=== PATIENT | male | born 1940 | race Caucasian/White ===

== ENCOUNTER 2021-05-24 06:08 | Day surgery (SDC) | payer MEDICARE, OTHER ==
[2021-05-17 14:58] LABS: BASOPHILS % (AUTO) 0.4 % (0-1); EOSINOPHILS # (AUTO) 0.2 X10'3 (0-0.9); EOSINOPHILS % (AUTO) 2.4 % (0-6); LYMPHOCYTES # (AUTO) 1.9 X10'3 (1.1-4.8); LYMPHOCYTES % (AUTO) 18.9 % (21-51); MEAN CORPUSCULAR HEMOGLOBIN 34.2 PG (27.0-31.0); MEAN CORPUSCULAR HGB CONC 34.5 g/dL (33.0-36.5); MEAN PLATELET VOLUME 6.7 FL (7.4-10.4); MONOCYTES # (AUTO) 0.7 X10'3 (0-0.9); MONOCYTES % (AUTO) 7.5 % (2-12); NEUTROPHILS % (AUTO) 70.8 % (42-75); PRE OP HEMATOCRIT 36.7 % (42.0-52.0); PRE OP HEMOGLOBIN 12.7 g/dL (14.0-17.9); PRE OP PLATELET COUNT 287 X10'3 (140-440); RED CELL DISTRIBUTION WIDTH 14.1 % (11.5-14.5)
[2021-05-17 15:19] LABS: ALBUMIN 3.3 G/DL (3.4-5.0); ALKALINE PHOSPHATASE 95 IU/L (46-116); BLOOD UREA NITROGEN 16 MG/DL (7-18); BUN/CREATININE RATIO 16.2 (5.4-32.0); CALCIUM 8.4 MG/DL (8.5-10.1); CHLORIDE 105 MMOL/L (99-107); CREATININE 0.99 MG/DL (0.60-1.10); PRE OP ALT 23 U/L (30-65); PRE OP ANION GAP 6 (8-16); PRE OP AST 20 U/L (10-37); PRE OP BILIRUB, TOTAL 0.3 MG/DL (0.0-1.0); PRE OP GLUCOSE 101 MG/DL (70-104); PRE OP POTASSIUM 4.1 MMOL/L (3.4-5.1); PRE OP SODIUM 140 MMOL/L (135-145); TOTAL CARBON DIOXIDE 29.4 MMOL/L (24-32); TOTAL PROTEIN 6.6 G/DL (6.4-8.2); eGFR 73 ML/MIN
[~2021-05-24] VITALS: Ht 167.6 cm; Wt 59.9 kg
[~2021-05-24 06:08] MED LIST: ALFU10TA10 PO; ASPI-611 PO; ATOR40TA72 PO; CYAN-34 PO; DOCUMENT DATE & TIME OF BETA-BLOCKER PO ONE; LISI-790 PO; METO25TA6 PO; PANT40TA54 PO; VITAMIN D; cefazolin/dext.iso 2gm/100ml IV ONE; famotidine 20mg tablet PO ONE; ringers solution, lacted 1,000 ML IV SCH
[2021-05-24] MEDS ORDERED: BUPIVAcaine/PF 2.5mg/ml (0.25%) 10ml vial ONE (06:42)
[2021-05-24] MEDS ORDERED: labetalol 20mg/4ml (5mg/ml) syringe IV PRN (07:10)
[2021-05-24] MEDS ORDERED: hydrALAZINE 20mg/ml inj. IV PRN (07:10)
[2021-05-24] MEDS ORDERED: proCHLORperazine 10 MG/2 ml inj IV PRN (07:10)
[2021-05-24] MEDS ORDERED: meperidine/PF 25mg/ml syringe IV PRN ×3 (07:10)
[2021-05-24] MEDS ORDERED: ringers solution, lacted 1,000 ML IV SCH (07:10)
[2021-05-24] MEDS ORDERED: ondansetron/PF 4mg/2ml inj IV PRN (07:10)
[2021-05-24] MEDS ORDERED: acetaminophen 1,000mg/100ml IV 100 ML IV PRN (07:10)
[2021-05-24] MEDS ORDERED: morphine 4 MG/ML inj SYRINge IV PRN (07:10)
[2021-05-24] MEDS ORDERED: morphine 2 MG/ML inj. syringe IV PRN (07:10)
[2021-05-24] MEDS ORDERED: fentaNYL/PF 50MCG/1 ML 2ML syringe ONE (08:01)
[2021-05-24] MEDS ORDERED: midazolam 1 mg/ML 2ml injection ONE (08:01)
[2021-05-24] MEDS ORDERED: propofol inj 20 ML IV ONE (08:29)
[2021-05-24] MEDS ORDERED: LIDOcaine 0.5% (5mg/ml) 50ml vial ONE (08:29)
[2021-05-24 08:35] VITALS: BP 100/58
--- NOTE | 2021-05-24 08:35 | NUR ---
ADMITTED TO PACU FROM OR ACCOMPANIED BY ANESTHESIA. INTIAL PHYSICAL ASSESSMENT DONE AND RECORDED. REPORT RECEIVED FROM ANESTHESIA.
[2021-05-24 08:45] VITALS: BP 92/50
[2021-05-24 08:55] VITALS: BP 95/52
[2021-05-24 09:00] VITALS: BP 100/55
--- NOTE | 2021-05-24 09:00 | NUR ---
DISCHARGE CRITERIA MET, DISCHARGE INSTRUCTIONS GIVEN, DEMONSTRATES VERBAL UNDERSTANDING. DISCHARGED HOME IN GOOD CONDITION.
[2021-05-24 09:50] VITALS: BP 166/91
[2021-05-24 09:51] VITALS: BP 166/91
== END 2021-05-24 09:00 | disposition home or self-care (01) ==
LOC: PAS 06:08
PROVIDERS: ATTEND Orthopaedic Surgery Hand Surgery
DX: G56.01 Carpal tunnel syndrome, right upper limb (principal); I10 Essential (primary) hypertension; K21.9 Gastro-esophageal reflux disease without esophagitis; Z88.2 Allergy status to sulfonamides; Z79.899 Other long term (current) drug therapy; Z87.891 Personal history of nicotine dependence; Z72.89 Other problems related to lifestyle; Z85.51 Personal history of malignant neoplasm of bladder; Z79.82 Long term (current) use of aspirin; Z20.822 Contact with and (suspected) exposure to COVID-19
CPT/HCPCS: 36415; 64721; 80053; 82948; 85025; 93005; J2001; J2250; J2704; J3010; J3490; U0003; U0005; Z7506; Z7512; A4215; J7120

== ENCOUNTER 2024-05-02 11:33 | Day surgery (SDC) | payer MEDICARE, OTHER ==
[~2024-05-02] VITALS: Ht 167.6 cm; Wt 58.6 kg
[~2024-05-02 11:33] MED LIST changes: -ALFU10TA10 PO; +ALFU10TA47 PO; -ASPI-611 PO; +CHOL100040 PO; -DOCUMENT DATE & TIME OF BETA-BLOCKER PO ONE; +FINA5TAB12; -LISI-790 PO; +LISI5TAB22 PO; -VITAMIN D; -cefazolin/dext.iso 2gm/100ml IV ONE; -famotidine 20mg tablet PO ONE; -ringers solution, lacted 1,000 ML IV SCH
[2024-05-02 11:53] VITALS: BP 167/82; PULSE 63; RESP 16
[2024-05-02] MEDS ORDERED: LIDOcaine 2% Viscous 15ml cup ONE (12:29)
[2024-05-02] MEDS ORDERED: propofol inj 20 ML IV ONE ×2 (12:30)
[2024-05-02 12:45] VITALS: BP 113/62; PULSE 57; RESP 16; O2SAT 99
[2024-05-02 12:55] VITALS: BP 135/69; PULSE 47; RESP 15; O2SAT 99
[2024-05-02 13:05] VITALS: BP 145/72; PULSE 51; RESP 16; O2SAT 98
[2024-05-02 13:15] VITALS: BP 155/71; PULSE 52; RESP 15; O2SAT 98
== END 2024-05-02 13:20 | disposition home or self-care (01) ==
LOC: GI LAB 11:33
PROVIDERS: ATTEND Internal Medicine Gastroenterology
DX: R13.10 Dysphagia, unspecified (principal); K21.00 Gastro-esophageal reflux disease with esophagitis, without bleeding; K29.60 Other gastritis without bleeding; I10 Essential (primary) hypertension; I73.9 Peripheral vascular disease, unspecified
CPT/HCPCS: 43239; A4620; J2704; J7030; Z7512; 88305